=== PATIENT | male | born 1985 | race African-American/Black ===

== ENCOUNTER 2017-07-18 19:20 | Emergency (ER) | payer SELFPAY ==
[~2017-07-18] VITALS: Ht 193 cm; Wt 93.0 kg
[2017-07-18] MEDS ORDERED: NKM (19:36)
[2017-07-18] MEDS ORDERED: HYDROcodone/Acetamin 7.5/325 tab ORAL ONE (20:00)
--- NOTE | 2017-07-18 20:47 | Emergency Room Report ---
History of Present Illness General Chief Complaint: Lower Extremity Injury Source: Patient Present Illness HPI 32 YO Male presents to the ED c/o 6 out of 10 in severity localized pain to the left foot status post stepping up onto a curb and rolling his foot last week. It is exacerbated upon weight-bearing and attempts to walk. Patient describes that his swelling and bruising has improved however he continues to have moderate amount of pain in the localized area. Patient is worried that he may have fractured his foot. Denies hitting his head, or having neck or back pain. Denies numbness tingling or loss of sensation or gross motor movements of the extremities, incontinence of bowel or bladder. Denies CP, Palpitations, LOC, AMS, dizziness, Changes in Vision, Sensation, paresthesias, or a sudden severe headache. Allergies: Coded Allergies: No Known Allergies (Unverified , 07/18/17) Patient History Past Medical History: see triage record Past Surgical History: none Pertinent Family History: none Reviewed Nursing Documentation: PMH: Agreed; PSxH: Agreed Nursing Documentation-PMH Past Medical History: No Stated History Review of Systems All Other Systems: negative except mentioned in HPI Physical Exam Vital Signs Date Time Temp Pulse Resp B/P (MAP) Pulse Ox O2 Delivery O2 Flow Rate FiO2 07/18/17 19:32 98.3 89 16 137/84 98 98.2 Sp02 EP Interpretation: reviewed, normal General Appearance: no apparent distress, alert, GCS 15, non-toxic Head: normocephalic, atraumatic ENT: hearing grossly normal, normal voice Neck: full range of motion Respiratory: lungs clear, normal breath sounds, speaking full sentences Cardiovascular #1: regular rate, rhythm, no edema, normal capillary refill Musculoskeletal: back normal, gait/station normal - compensatory, normal range of motion, tender - TTP to the lateral aspect of the left foot. no bruising or swelling, FROM of ankle and toes. pain with toe flexion. Neurologic: alert, oriented x3, responsive, motor strength/tone normal, sensory intact, speech normal, grossly normal Psychiatric: judgement/insight normal Skin: normal color, no rash, warm/dry, well hydrated Medical Decision Making PA Attestation Dr. Seth is my supervising Physician whom patient management has been discussed with. Diagnostic Impression: Primary Impression: Metatarsal fracture Qualified Codes: S92.352A - Displaced fracture of fifth metatarsal bone, left foot, initial encounter for closed fracture ER Course Pt. presents to the ED c/o 6 out of 10 in severity localized pain to the left foot status post stepping up onto a curb and rolling his foot last week. It is exacerbated upon weight-bearing and attempts to walk. Patient describes that his swelling and bruising has improved however he continues to have moderate amount of pain in the localized area. Patient is worried that he may have fractured his foot. Denies numbness tingling or loss of sensation or gross motor movements of the extremities, incontinence of bowel or bladder. Denies CP , Palpitations, LOC, AMS, dizziness, Changes in Vision, Sensation, paresthesias , or a sudden severe headache. Ddx considered but are not limited to Fracture, dislocation, contusion, Sprain/ Strain/Spasm just to name a few. Vital signs: are WNL, pt. is afebrile H&PE are most consistent with musculoskeletal injury will perform imaging to r/ o fractures/dislocations. ORDERS: - X-ray left Foot - fifth metatarsal fracture ED INTERVENTIONS: -Ashwood by mouth -Orthopedic Cast Shoe applied to the left foot by automation technician. Pt. remains neurovascularly intact. -Patient is provided with crutches and instructed on their use DISCHARGE: At this time pt. is stable for d/c to home. Will provide printed patient care instructions, and any necessary prescriptions. Care plan and follow up instructions have been discussed with the patient prior to discharge. Other X-Ray Diagnostic Results Other X-Ray Diagnostic Results : X-Ray ordered: Left Foot # of Views/Limited Vs Complete: 3 View Indication: Pain EP Interpretation: Yes PA Xray: Interpretation reviewed, by supervising MD, and agrees with findings. Interpretation: no dislocation, no soft tissue swelling, other - 5th Metatarsal fx. Impression: Other - abnormal Electronically Signed by: Shadia Pablo PA-C Last Vital Signs Date Time Temp Pulse Resp B/P (MAP) Pulse Ox O2 Delivery O2 Flow Rate FiO2 07/18/17 19:32 98.3 89 16 137/84 98 98.2 Disposition: HOME, SELF-CARE Condition: Stable Scripts Ibuprofen* (MOTRIN*) 600 Mg Tablet 600 MG ORAL THREE TIMES A DAY, #30 TAB 0 Refills Prov: Shadia Pablo PCecily 07/18/17 Hydrocodone Bit/Acetaminophen 7.5-325* (NORCO 7.5-325*) 1 Each Tablet 1 TAB ORAL Q6H PRN for For Pain, #15 TAB 0 Refills Prov: Shadia Pablo 07/18/17 Patient Instructions: Metatarsal Fracture Additional Instructions: Take medications as directed. Follow up with a Collection Officer in 3-5 days, even if your symptoms have resolved. Return sooner to ED if new symptoms occur, or current symptoms become worse. Do not drink alcohol, drive, or operate heavy machinery while taking Ashwood as this may cause drowsiness. - Please note that this Emergency Department Report was dictated using [email or web address] technology software, occasionally this can lead to erroneous entry secondary to interpretation by the dictation equipment. Shadia Pablo Jul 18, 2017 20:47
[2017-07-18] MEDS ORDERED: NORCO 7.5-3251 EACH ORAL (20:50)
[2017-07-18] MEDS ORDERED: IBUPROFEN600 MG ORAL (20:50)
[2017-07-18 21:38] VITALS: BP 128/88
--- NOTE | 2017-07-19 11:32 | Diagnostic Imaging Report ---
Indication: Lateral side pain, trauma Technique: 3 views left foot Comparison: none Findings: There is an oblique fracture of the distal fifth metatarsal shaft. This is displaced by about one bone width. No other acute fractures. No dislocations. The joint spaces are preserved. Impression: Positive for fifth metatarsal fracture This agrees with the ER physician conclusions reported in the electronic medical record
== END 2017-07-18 21:38 | disposition home or self-care (01) ==
LOC: EMR 19:40
DX: S92.352A Displaced fracture of fifth metatarsal bone, left foot, initial encounter for closed fracture (principal); X50.1XXA Overexertion from prolonged static or awkward postures, initial encounter; Y92.89 Other specified places as the place of occurrence of the external cause
CPT/HCPCS: 99284